=== PATIENT | male | born 1995 | race Caucasian/White ===

== ENCOUNTER 2016-10-05 08:12 | Emergency (ER) | payer OTHER ==
--- NOTE | 2016-10-05 09:16 | RAD ---
INDICATION: Intracranial injury. Trauma. COMPARISON: None TECHNIQUE: Noncontrast axial source images were acquired from the skull base to the vertex. FINDINGS: Ventricles/sulci: The ventricles and cisterns are normal in size and configuration for age. Brain parenchyma: There is no focal parenchymal finding, evidence of intracranial mass, or intracranial mass effect. Intracranial hemorrhage:None. Extra-axial spaces: There are no abnormal extra axial fluid collections or evidence of extra-axial mass. Calvarium: There is no calvarial fracture or other calvarial abnormality. Scalp: There is no evidence of scalp or extracalvarial soft tissue abnormality. Paranasal sinuses/mastoid: The paranasal sinuses and mastoid air cells are clear. Other: None. IMPRESSION: NEGATIVE EXAMINATION
[2016-10-05 09:19] LABS: Hematocrit 50 % (42-52); Hemoglobin 16.9 g/dl (14.0-18.0); Mean Corpuscular HGB Conc 34 g/dl (31-36); Mean Corpuscular Hemoglobin 31 pg (27-31); Mean Corpuscular Volume 93 fL (80-94); Mean Platelet Volume 9 um3 (7.4-10.4); Red Cell Distribution Width 13 % (10.5-15); White Blood Count 11.1 10^3/ul (3.5-10.8)
--- NOTE | 2016-10-05 09:19 | RAD ---
INDICATION: Facial injury. COMPARISON: None TECHNIQUE: Axial source images were acquired from the vertex of the mandible through the orbits. Coronal and sagittal reconstructed images were acquired. FINDINGS: Bones: There is no acute facial bone fracture. Orbits: The globes and intraconal structures appear intact. The optic nerves are symmetric. Extraocular muscles appear normal. There is no intraconal inflammatory change or retrobulbar mass.. Paranasal sinuses: There is mild mucosal thickening involving the right maxillary antrum. There is no air-fluid level. The paranasal sinuses are otherwise clear. Brain: There are no acute abnormalities of the visualized brain parenchyma. Soft tissues: Normal Other: None The visualized soft tissue elements about the neck appear normal. IMPRESSION: NO ACUTE FACIAL BONE FRACTURE
--- NOTE | 2016-10-05 09:20 | RAD ---
INDICATION: Chest injury COMPARISON: None TECHNIQUE: PA and lateral dual-energy views were obtained. FINDINGS: Bones/Soft Tissues: There are no acute bony findings. Cardiomediastinal: The cardiomediastinal silhouette is normal. Lungs: There are no infiltrates. Pleura: There are no pleural effusions. Other: None IMPRESSION: NEGATIVE EXAMINATION.
[2016-10-05] MEDS ORDERED: diPHENhydraMINE IV* 50 MG/ML 1 ml VIAL (BENADRYL) ONE (09:40)
[2016-10-05] MEDS ORDERED: LORazepam INJ* 2 MG/ML 1 ML VIAL ONE (09:40)
[2016-10-05] MEDS ORDERED: Haloperidol INJ IV/IM* 5 MG/ML AMP ONE (09:40)
[2016-10-05 09:41] LABS: Urine Bacteria Absent (Absent); Urine Bilirubin Negative (Negative); Urine Glucose Negative (Negative); Urine Nitrite Negative (Negative)
[2016-10-05 10:11] LABS: TSH (Thyroid Stimulating Horm) 3.07 mcIU/mL (0.34-5.60)
[2016-10-05 10:46] LABS: ALT 33 U/L (7-52); AST 38 U/L (13-39); Albumin 4.9 g/dL (3.2-5.2); Alkaline Phosphatase 54 U/L (34-104); Anion Gap 15 mmol/L (2-11); BUN/Creatinine Ratio 7.6 (8-20); Blood Urea Nitrogen 10 mg/dL (6-24); CO2 Carbon Dioxide 20 mmol/L (22-32); Calcium 9.7 mg/dL (8.6-10.3); Chloride 106 mmol/L (101-111); Creatine Kinase 474 U/L (10-223); EGFR African American 88.8 (>60); EGFR Non-African American 69.1 (>60); Globulin 2.9 g/dL (2-4); Glucose 114 mg/dL (70-100); Potassium 3.4 mmol/L (3.5-5.0); Sodium 141 mmol/L (133-145); Total Protein 7.8 g/dL (6.4-8.9)
[2016-10-05 10:47] LABS: Benzodiazepine Urine Screen None Detected (None Detect)
[2016-10-05 10:48] LABS: Acetaminophen < 15 mcg/mL; Alcohol 314 mg/dL (<10); Salicylate < 2.50 mg/dL (<30)
[2016-10-05 15:10] VITALS: BP 109/37
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
== END 2016-10-05 15:12 | disposition home or self-care (01) ==
LOC: ED 08:12
DX: S00.81XA Abrasion of other part of head, initial encounter (principal); S00.83XA Contusion of other part of head, initial encounter; F10.129 Alcohol abuse with intoxication, unspecified; Y90.8 Blood alcohol level of 240 mg/100 ml or more; L08.9 Local infection of the skin and subcutaneous tissue, unspecified; S40.812A Abrasion of left upper arm, initial encounter; S40.811A Abrasion of right upper arm, initial encounter; S20.319A Abrasion of unspecified front wall of thorax, initial encounter; Y04.0XXA Assault by unarmed brawl or fight, initial encounter; Y92.9 Unspecified place or not applicable; T14.8 Other injury of unspecified body region
CPT/HCPCS: 36415; 70450; 70486; 71020; 80053; 80307; 80320; 80329; 81003; 81015; 82550; 84443; 85025; 99284; G0480; J1200; J1630; J2060